=== PATIENT | male | born 1980 | race Two or more races ===

== ENCOUNTER 2022-05-07 19:40 | Emergency (ER) | payer OTHER ==
[~2022-05-07] VITALS: Ht 175.3 cm; Wt 94.1 kg
[2022-05-07 22:31] VITALS: BP 124/77
== END 2022-05-07 22:30 | disposition home or self-care (01) ==
LOC: ER 19:40
DX: S09.90XA Unspecified injury of head, initial encounter (principal); E03.9 Hypothyroidism, unspecified; M79.644 Pain in right finger(s); F17.210 Nicotine dependence, cigarettes, uncomplicated; Z90.49 Acquired absence of other specified parts of digestive tract; Y04.2XXA Assault by strike against or bumped into by another person, initial encounter; Y93.89 Activity, other specified; Y92.89 Other specified places as the place of occurrence of the external cause; Y99.8 Other external cause status
CPT/HCPCS: 70450; 73130